=== PATIENT | female | born 2005 | race Caucasian/White ===

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

== ENCOUNTER 2025-06-08 12:50 | Emergency (ER) | payer OTHER ==
[2025-06-08 13:14] VITALS: TEMP 99.2
--- NOTE | 2025-06-08 14:08 | ERPHSYRPT ---
- History of Present Illness Time Seen by Provider: 06/08/25 14:04 Source: patient Exam Limitations: no limitations Patient Subjective Stated Complaint: pt c/o of lower abdominal and vaginal pain with bleeding, pt reports not having a menstrual period for 2 years due to having an IUD and she began bleeding yesterday and also that her boyfriend can feel it during sex Triage Nursing Assessment: Pt brought self to the ER, vitals wnl, rates abdominal pain as 5/10, pulses normal, skin n/w/d, denies chest pain, no shortness of breath, last intercourse 2 days ago, doesn't appear to be in any distress Physician History: Patient is a 20-year-old female history of seizures otherwise healthy presents to our ED for evaluation of lower abdominal cramping and vaginal bleeding. Patient reports her symptoms have been going on for the past several days. Patient concerned that she has not had a menstrual period for 2 years since having an IUD placed. Patient has been bleeding daily for the past 2 days. No trauma no fever no nausea no vomiting no dizziness. Symptoms are mild to moderate in intensity. No specific worsening or improving factors. Patient voices no other complaints or concerns at this time. Portions of this note were created with voice recognition technology. There may be grammatical, spelling, punctuation or sound alike errors Timing/Duration: yesterday Severity: moderate Associated Symptoms: denies symptoms Allergies/Adverse Reactions: Penicillins Allergy (Mild, Verified 06/08/25 13:14) unknown Hx Tetanus, Diphtheria Vaccination/Date Given: Yes Hx Influenza Vaccination/Date Given: No Hx Pneumococcal Vaccination/Date Given: No Travel Risk - International Travel Have you traveled outside of the country in past 3 weeks: No - Emerging Infectious Disease Are you exhibiting symptoms associated with any current EIDs: No - Review of Systems All Other Systems: Reviewed and Negative - Past Medical History Pertinent Past Medical History: Yes (former headaches) Neurological History: Seizures ENT History: No Pertinent History Cardiac History: No Pertinent History Respiratory History: No Pertinent History Endocrine Medical History: No Pertinent History Musculoskeletal History: No Pertinent History GI Medical History: No Pertinent History History: No Pertinent History Psycho-Social History: Depression Female Reproductive Disorders: No Pertinent History Other Medical History: LAST SEIZURE 2 YRS old. depression. hx of pancreatitis - Past Surgical History Past Surgical History: No Neuro Surgical History: No Pertinent History Cardiac: No Pertinent History Respiratory: No Pertinent History Gastrointestinal: No Pertinent History Genitourinary: No Pertinent History Musculoskeletal: No Pertinent History Female Surgical History: No Pertinent History Other Surgical History: tooth extraction 2022 - no anesthesia - Female History Hx Last Menstrual Period: IUD Hx Now: No - Social History Smoking Status: Never smoker Exposure to second hand smoke: No Drug Use: none - Social Determinants of Health Will the patient participate in the screening: Yes Do you worry about a steady place to live?: No Do you have any problems with any of the following?: No known problems In the past 12 months,have you had to go without utilities?: No Transportation Issues: No Has anyone in your support network made you feel unsafe?: No Have you or anyone in your house had to go w/o enough food: No - Nursing Vital Signs Nursing Vital Signs: Initial Vital Signs Temperature 99.2 F 06/08/25 13:09 Pulse Rate 60 06/08/25 13:09 Blood Pressure 137/87 06/08/25 13:09 O2 Sat by Pulse Oximetry 100 06/08/25 13:09 Pain Scale Pain Intensity 4 - Physical Exam General Appearance: no apparent distress, alert Eye Exam: PERRL/EOMI, eyes nml inspection Ears, Nose, Throat Exam: normal ENT inspection, TMs normal, pharynx normal, moist mucous membranes Neck Exam: normal inspection, full range of motion Respiratory Exam: normal breath sounds, lungs clear, airway intact, No respiratory distress Cardiovascular Exam: regular rate/rhythm, normal heart sounds, normal peripheral pulses Gastrointestinal/Abdomen Exam: soft, normal bowel sounds, No tenderness, No mass Back Exam: normal inspection, normal range of motion, No CVA tenderness, No vertebral tenderness Extremity Exam: normal inspection, normal range of motion, pelvis stable Neurologic Exam: alert, oriented x 3, cooperative, normal mood/affect, sensation nml, No motor deficits Skin Exam: normal color, warm, dry, No rash Lymphatic Exam: No adenopathy SpO2 Interpretation: normal SpO2: 100 O2 Delivery: Room Air - Course Nursing assessment & vital signs reviewed: Yes - Radiology Ultrasound Exam Pelvis Ultrasound: tele radiology report (Negative transvaginal pelvic sonogram with incidental uterine IUD) Ordered Tests: Active Orders 24 hr Category Date Time Status IV Insertion STAT Care 06/08/25 14:02 Active PELVIS TRANS VAGINAL [US] Stat Exams 06/08/25 14:07 Completed CBC W DIFF Stat Lab 06/08/25 14:30 Completed CMP Stat Lab 06/08/25 14:30 Completed CULTURE,URINE Stat Lab 06/08/25 14:02 Received HCG QUALITATIVE, URINE Stat Lab 06/08/25 14:26 Completed UA W/RFX UR CULTURE Stat Lab 06/08/25 14:02 Completed Medication Summary Generic Name Dose Route Start Last Admin Trade Name Freq PRN Reason Stop Dose Admin Doxycycline Hyclate 100 mg 06/08/25 22:00 06/08/25 16:46 Doxycycline Hyclate 100 Mg Tablet PO 07/08/25 21:59 100 mg BID NOE Administration Sodium Chloride 1,000 mls @ 100 mls/hr 06/08/25 14:15 06/08/25 14:07 Sodium Chloride 0.9% 1000 Ml IV 07/08/25 14:14 100 mls/hr .Q10H NOE Administration Discontinued Medications Generic Name Dose Route Start Last Admin Trade Name Freq PRN Reason Stop Dose Admin Nitrofurantoin Macrocrystals 100 mg 06/08/25 16:41 06/08/25 16:45 Nitrofurantoin Macro 100 Mg Capsule PO 06/08/25 16:42 100 mg STAT ONE Administration Lab/Rad Data: Laboratory Result Diagrams 06/08/25 14:30 06/08/25 14:30 Laboratory Results 06/08/25 06/08/25 06/08/25 Range/Units 14:30 14:30 14:26 WBC 7.6 (3.98-10.04) x10^3/uL RBC 4.62 (3.93-5.22) x10^6/uL Hgb 14.1 (11.2-15.7) g/dL Hct 42.0 (34.1-44.9) % MCV 90.9 (79.4-94.8) fL MCH 30.5 (25.6-32.2) pg MCHC 33.6 (32.2-35.5) g/dL RDW 11.6 L (11.7-14.4) % Plt Count 144 L (182-369) x10^3/uL MPV 8.8 L (9.4-12.3) fL Gran % 61.1 (34.0-71.1) % Immature Gran % (Auto) 0.1 (0.001-0.429) % Nucleat RBC Rel Count 0.0 (0.00-0.2) % Eos # (Auto) 0.19 (0.04-0.36) x10^3/uL Immature Gran # (Auto) 0.01 (0.001-0.031) x10^3u/L Absolute Lymphs (auto) 2.15 (1.18-3.74) x10^3/uL Absolute Monos (auto) 0.59 (0.24-0.86) x10^3/uL Absolute Nucleated RBC 0.00 (0.00-0.012) x10^3u/L Lymphocytes % 28.2 (19.3-51.7) % Monocytes % 7.7 (4.7-12.5) % Eosinophils % 2.5 (0.7-5.8) % Basophils % 0.4 (0.1-1.2) % Absolute Granulocytes 4.65 (1.56-6.13) x10^3/uL Basophils # 0.03 (0.01-0.08) x10^3/uL Sodium 139 (135-145) mmol/L Potassium 3.8 (3.5-5.1) mmol/L Chloride 108 H (98-107) mmol/L Carbon Dioxide 22 (22-30) mmol/L Anion Gap 12.8 (5-15) MEQ/L BUN 10 (7-17) mg/dL Creatinine 0.65 (0.52-1.04) mg/dL Estimated GFR 129.2 ML/MIN Glucose 105 (74-106) mg/dL Calcium 9.2 (8.4-10.2) mg/dL Total Bilirubin 0.30 (0.2-1.3) mg/dL AST 28 (14-36) U/L ALT 17 (0-35) U/L Alkaline Phosphatase 59 (38-126) U/L Serum Total Protein 7.3 (6.3-8.2) g/dL Albumin 4.4 (3.5-5.0) g/dL Urine Color (Yellow) Urine Appearance (Clear) Urine pH (4.6-8.0) Ur Specific [place] (1.005-1.030) Urine Protein (Negative) Urine Glucose (UA) (Negative) mg/dL Urine Ketones (Negative) Urine Blood (Negative) Urine Nitrite (Negative) Urine Bilirubin (Negative) Urine Urobilinogen (0.2) mg/dL Ur Leukocyte Esterase (Negative) U Hyaline Cast (Auto) (0-2) /LPF Urine Microscopic RBC (0-5) /HPF Urine Microscopic WBC (0-5) /HPF Ur Epithelial Cells (None Seen) /HPF Urine Bacteria (None Seen) /HPF Urine Culture Reflexed (NO) Urine HCG, Qual (NEGATIVE) Chlamydia DNA Probe DETECTED A (NEGATIVE) N.gonorrhoeae DNA Probe NOT DETECTED (NEGATIVE) ABO Group Rh Factor Antibody Screen (NEGATIVE) 06/08/25 06/08/25 06/08/25 Range/Units 14:26 14:26 14:02 WBC (3.98-10.04) x10^3/uL RBC (3.93-5.22) x10^6/uL Hgb (11.2-15.7) g/dL Hct (34.1-44.9) % MCV (79.4-94.8) fL MCH (25.6-32.2) pg MCHC (32.2-35.5) g/dL RDW (11.7-14.4) % Plt Count (182-369) x10^3/uL MPV (9.4-12.3) fL Gran % (34.0-71.1) % Immature Gran % (Auto) (0.001-0.429) % Nucleat RBC Rel Count (0.00-0.2) % Eos # (Auto) (0.04-0.36) x10^3/uL Immature Gran # (Auto) (0.001-0.031) x10^3u/L Absolute Lymphs (auto) (1.18-3.74) x10^3/uL Absolute Monos (auto) (0.24-0.86) x10^3/uL Absolute Nucleated RBC (0.00-0.012) x10^3u/L Lymphocytes % (19.3-51.7) % Monocytes % (4.7-12.5) % Eosinophils % (0.7-5.8) % Basophils % (0.1-1.2) % Absolute Granulocytes (1.56-6.13) x10^3/uL Basophils # (0.01-0.08) x10^3/uL Sodium (135-145) mmol/L Potassium (3.5-5.1) mmol/L Chloride (98-107) mmol/L Carbon Dioxide (22-30) mmol/L Anion Gap (5-15) MEQ/L BUN (7-17) mg/dL Creatinine (0.52-1.04) mg/dL Estimated GFR ML/MIN Glucose (74-106) mg/dL Calcium (8.4-10.2) mg/dL Total Bilirubin (0.2-1.3) mg/dL AST (14-36) U/L ALT (0-35) U/L Alkaline Phosphatase (38-126) U/L Serum Total Protein (6.3-8.2) g/dL Albumin (3.5-5.0) g/dL Urine Color Yellow (Yellow) Urine Appearance Cloudy A (Clear) Urine pH 7.0 (4.6-8.0) Ur Specific [place] 1.020 (1.005-1.030) Urine Protein 100 A (Negative) Urine Glucose (UA) Negative (Negative) mg/dL Urine Ketones Negative (Negative) Urine Blood Large A (Negative) Urine Nitrite Negative (Negative) Urine Bilirubin Negative (Negative) Urine Urobilinogen 1.0 A (0.2) mg/dL Ur Leukocyte Esterase Moderate A (Negative) U Hyaline Cast (Auto) NONE SEEN (0-2) /LPF Urine Microscopic RBC 0-2 (0-5) /HPF Urine Microscopic WBC 11-20 A (0-5) /HPF Ur Epithelial Cells Many A (None Seen) /HPF Urine Bacteria Few A (None Seen) /HPF Urine Culture Reflexed YES (NO) Urine HCG, Qual NEGATIVE (NEGATIVE) Chlamydia DNA Probe (NEGATIVE) N.gonorrhoeae DNA Probe (NEGATIVE) ABO Group O Rh Factor POSITIVE Antibody Screen NEGATIVE (NEGATIVE) - Progress Progress: improved Progress Note: 20-year-old female presents to our ED with vaginal bleeding. Physical exam reveals no active vaginal bleeding. Ultrasound pelvis negative for acute findings. No torsion. UA significant for urinary tract infection. Patient received oral dose of Macrobid. Workup also reveals chlamydia. Patient received an oral dose of doxycycline. No indication for further workup will discharge home. Patient agrees to follow-up with her primary care doctor within 48 hours for reevaluation. Patient will also discuss the findings with her significant other. She will ensure that he gets tested and treated accordingly. She understands the importance of avoiding sexual intercourse until her infection has resolved. Patient extubated for discharge. She voices no other complaints or concerns at this time. History obtained from patient. Differential diagnoses include STI, abnormal menstruation, torsion, hematuria Portions of this note were created with voice recognition technology. There may be grammatical, spelling, punctuation or sound alike errors Complexity of problems addressed is moderate acute complicated. No critical care time. Complexity of data reviewed and analyzed is moderate. Test ordered chest reviewed results analyzed and correlated clinically with history and physical exam. Risk of complication and or risk of morbidity/mortality of patient management is moderate. Vital stable. Time spent to discharge patient is approximately 15 minutes. Plan of care established for shared decision making. No social determinants of health present to impede follow-up. Portions of this note were created with voice recognition technology. There may be grammatical, spelling, punctuation or sound alike errors 06/08/25 16:50 Counseled pt/family regarding: lab results, diagnosis, need for follow-up, rad results - Departure Departure Disposition: Home Clinical Impression: Vaginal bleeding, Chlamydia, Urinary tract infection Condition: Stable Critical Care Time: No Referrals: GRACE ARAGON NP [Primary Care Provider, [facility] [place]] - Follow up/PCP as directed Additional Instructions: Discharge/Care Plan SELENA MCGEENA LYNN was seen on 06/08/25 in the Emergency Room. The patient was counseled regarding Diagnosis,Lab results, Imaging studies, need for follow up and when to return to the Emergency Room. Prescriptions given: Discharge Note I have spoken with the patient and/or caregivers. I have explained the patient's condition, diagnosis and treatment plan based on the information available to me at this time. I have answered the patient's and/or caregiver's questions and addressed any concerns. The patient and/or caregivers have as good understanding of the patient's diagnosis, condition and treatment plan as can be expected at this point. The vital signs have been stable. The patient's condition is stable and appropriate for discharge from the emergency department. The patient will pursue further outpatient evaluation with the primary care physician or other designated or consulting physician as outlined in the discharge instructions. The patient and/or caregivers are agreeable to this plan of care and follow-up instructions have been explained in detail. The patient and/or caregivers have received these instruction. The patient/and or caregivers are aware that any significant change in condition or worsening of symptoms should prompt an immediate return to this or the closest emergency department or call 911. Prescriptions: Nitrofurantoin Macro 100 mg [Macrobid 100MG Capsule] 100 mg PO BID 7 Days #14 cap Doxycycline Hyclate 100 mg [Vibramycin 100 MG] 100 mg PO BID 7 Days #14 tab
[2025-06-08 14:34] LABS: HCG URINE TEST NEGATIVE (NEGATIVE)
[2025-06-08 14:40] LABS: BASOPHIL % 0.4 % (0.1-1.2); Basophil (Absolute #) 0.03 x10^3/uL (0.01-0.08); Eosinophil (Absolute #) 0.19 x10^3/uL (0.04-0.36); Hematocrit 42.0 % (34.1-44.9); Hemoglobin 14.1 g/dL (11.2-15.7); IMMATURE GRAN # 0.01 x10^3u/L (0.001-0.031); IMMATURE GRAN % 0.1 % (0.001-0.429); Lymphocyte (Absolute #) 2.15 x10^3/uL (1.18-3.74); Mean Corpuscular Hemoglobin 30.5 pg (25.6-32.2); Mean Corpuscular Hgb Concent. 33.6 g/dL (32.2-35.5); Monocyte (Absolute #) 0.59 x10^3/uL (0.24-0.86); NUCLEATED RBC # 0.00 x10^3u/L (0.00-0.012); NUCLEATED RBC % 0.0 % (0.00-0.2); Platelet Count 144 x10^3/uL (182-369); Red Blood Count 4.62 x10^6/uL (3.93-5.22); White Blood Count 7.6 x10^3/uL (3.98-10.04)
[2025-06-08 14:53] LABS: Glucose, Urine Negative (Negative); Protein,Urine Dip 100 (Negative); RBC 0-2 /HPF (0-5)
[2025-06-08 15:07] LABS: Calcium 9.2 mg/dL (8.4-10.2); Carbon Dioxide 22.0 mmol/L (22-30); Creatinine 1 0.65 mg/dL (0.52-1.04); EST GLOMERULAR FILTRATION RATE 129.2 ML/MIN; Glucose 105.0 mg/dL (74-106); Potassium 3.8 mmol/L (3.5-5.1); SGOT/AST 28.0 U/L (14-36); SGPT/ALT 17.0 U/L (0-35); Total Protein 7.3 g/dL (6.3-8.2)
[2025-06-08 15:30] LABS: ABO TYPING O; RH TYPING POSITIVE
[2025-06-08 15:58] LABS: CHLAMYDIA DNA DETECTED (NEGATIVE)
[2025-06-08 16:04] VITALS: PULSE 50; RESP 22; O2SAT 100
--- NOTE | 2025-06-08 16:15 | XRAY ---
Indication: Pain. Vaginal bleeding. Two-dimensional transvaginal pelvic sonogram performed. Comparison: None Uterus anteverted measuring 8.1 x 3.6 x 5.3 cm. No focal solid/cystic uterine mass. Endometrial stripe measures 6.3 mm with IUD tip at the level of the fundus. No endometrial cavity mass or fluid collection. Right ovary measures 2.7 x 1.6 x 2.7 cm and left measures 2.7 x 2.0 x 1.9 cm. Normal follicular cysts and perfusion bilaterally. No suspicious adnexal mass or free fluid. Impression: Negative transvaginal pelvic sonogram with incidental uterine IUD in Situ.
[2025-06-08] MEDS: Macrobid 100MG Capsule PO ONE (16:45)
[2025-06-08] MEDS ORDERED: Macrobid 100MG Capsule ONE (16:45)
[2025-06-08 17:03] VITALS: BP 132/78
[2025-06-08 17:40] LABS: Candida Group NOT DETECTED (NEGATIVE); Candida glab/krus NOT DETECTED (NEGATIVE)
== END 2025-06-08 17:11 | disposition home or self-care (01) ==
LOC: ED 12:50
DX: N93.9 Abnormal uterine and vaginal bleeding, unspecified (principal); A74.9 Chlamydial infection, unspecified; N39.0 Urinary tract infection, site not specified; R10.30 Lower abdominal pain, unspecified; Z79.899 Other long term (current) drug therapy